=== PATIENT | female | born 1945 | race Caucasian/White ===

== ENCOUNTER 2021-08-31 06:27 | Day surgery (SDC) | payer MEDICARE, OTHER ==
[2021-08-31] MEDS ORDERED: Midazolam 1 MG/ML 2 ML SDV IV ONE (06:28)
[2021-08-31] MEDS ORDERED: Propofol 200 MG/20 ML SDV IV ONE (06:28)
[2021-08-31] MEDS ORDERED: Lactated Ringers 1,000 ML IV SCH (06:45)
[2021-08-31] MEDS ORDERED: Sodium Chloride 0.9% 10 ML Syringe FLUSH PRN (06:45)
--- NOTE | 2021-08-31 08:20 | PCM.PN ---
- General Info Date of Service: 08/31/21 Admission Dx/Problem (Free Text): History of colon polyps - Review of Systems General: Reports: No Symptoms Pulmonary: Reports: No Symptoms Gastrointestinal: Reports: No Symptoms, Other (Bowels working well without recent bleeding) - Patient Data Vitals - Most Recent: Last Vital Signs Temp 97.8 F 08/31/21 07:15 Pulse 58 L 08/31/21 07:15 Resp 16 08/31/21 07:15 BP 127/87 08/31/21 07:15 Pulse Ox 99 08/31/21 07:15 Weight - Most Recent: 215 lb Med Orders - Current: Current Medications Lactated Ringer's (Ringers, Lactated) 1,000 mls @ 125 mls/hr IV ASDIRECTED KINA Last Admin: 08/31/21 07:44 Dose: 125 mls/hr Documented by: Sodium Chloride (Sodium Chloride 0.9% 10 Ml Syringe) 10 ml FLUSH ASDIRECTED PRN PRN Reason: Keep Vein Open - Exam General: Alert, Oriented Lungs: Clear to Auscultation Cardiovascular: Regular Rate, Regular Rhythm GI/Abdominal Exam: Soft, Non-Tender Sepsis Event Note - Focused Exam Vital Signs: Vital Signs Temp Pulse Resp BP Pulse Ox 08/31/21 07:15 97.8 F 58 L 16 127/87 99 - Problem List Review Problem List Initiated/Reviewed/Updated: Yes - My Orders Last 24 Hours: My Active Orders 08/31/21 Breakfast Nothing Per Oral Diet [DIET] 08/31/21 06:45 Patient Status [ADT] Routine Verify Patient Consent Obtain [RC] ASDIRECTED Lactated Ringers [Ringers, Lactated] 1,000 ml IV ASDIRECTED Sodium Chloride 0.9% [Saline Flush] 10 ml FLUSH ASDIRECTED PRN Peripheral IV Insertion Adult [OM.PC] Routine - Assessment Assessment:: History of colon polyps - Plan Plan:: Colonoscopy
--- NOTE | 2021-08-31 08:53 | PCM.OPNOTE ---
- General Post-Op/Procedure Note Date of Surgery/Procedure: 08/31/21 Operative Procedure(s): Colonoscopy Findings: Extensive Sigmoid Diverticulosis Pre Op Diagnosis: History of colon polyps Post-Op Diagnosis: Sigmoid Diverticulosis Anesthesia Technique: MAC Primary Surgeon: Sid Puga Pathology: none EBL in mLs: 0 Complications: None Condition: Good
[2021-08-31 09:46] VITALS: BP 131/79; PULSE 53
--- NOTE | 2021-08-31 15:41 | OR ---
DATE OF OPERATION: 08/31/2021 SURGEON: Sid Puga MD PREOPERATIVE DIAGNOSIS: History of colon polyps. POSTOPERATIVE DIAGNOSIS: Sigmoid diverticulosis. OPERATION PERFORMED: Colonoscopy. INDICATIONS FOR SURGERY: This 75-year-old female has a known history of colon polyps. She comes today for surveillance colonoscopy. FINDINGS: No polyps were seen on today's exam. The patient does have moderate to extensive diverticulosis in the sigmoid region. Multiple diverticula are noted, although they do not appear to be acutely inflamed or otherwise complicated. The remainder of the colon appears normal. PROCEDURE IN DETAIL: The patient was taken to the procedure room. She was given intravenous sedation and with her in the left lateral decubitus position, digital rectal exam was performed showing no rectal masses. The Olympus colonoscope was inserted into the rectum. Retroflexed examination of the rectal canal was performed. The scope was then carefully advanced under direct visualization through the entire length of the colon until the cecum was reached. Cecal acquisition was confirmed by noting the normal internal cecal anatomy including the appendiceal orifice and the ileocecal valve. The light was also noted to transilluminate the abdominal wall in the right lower quadrant. After examining the cecum, the scope was slowly withdrawn sequentially re-examining the colonic segments until the entire colon and rectum had been fully examined. The scope was removed and the patient was taken from the procedure room in satisfactory condition. ESTIMATED BLOOD LOSS: Zero. COMPLICATIONS: None. PROGNOSIS: Good. /[id number] ESTHER/RAND
== END 2021-08-31 09:37 | disposition home or self-care (01) ==
LOC: FB.SDS 06:27
PROVIDERS: ATTEND Surgery
DX: Z12.11 Encounter for screening for malignant neoplasm of colon (principal); K57.30 Diverticulosis of large intestine without perforation or abscess without bleeding; F41.9 Anxiety disorder, unspecified; G43.909 Migraine, unspecified, not intractable, without status migrainosus; Z86.010 Personal history of colon polyps; Z79.899 Other long term (current) drug therapy
CPT/HCPCS: 00811; G0105; J2250; J2704; J7120